=== PATIENT | male | born 1975 | race Two or more races ===

== ENCOUNTER 2024-01-18 21:33 | Emergency (ER) | payer MEDICAID, OTHER ==
[~2024-01-18] VITALS: Ht 167.6 cm; Wt 83.2 kg
[2024-01-18 22:48] LABS: Urine Bacteria FEW /hpf (None Seen); Urine Blood Negative /uL (Negative); Urine Clarity Turbid (Clear); Urine Color Yellow (Yellow); Urine Hyaline Cast FEW /lpf (0 - 2); Urine Mucus FEW (None Seen); Urine Protein, UAD 1+ (Negative); Urine Specific Gravity 1.028 (1.001-1.035); Urine Urobilinogen Normal (Negative); Urine WBC 33 /hpf (0 - 3)
[2024-01-18] MEDS: levoFLOXacin 250 MG TAB PO ONE (23:06)
[2024-01-18] MEDS: KETOROLAC TROMETH 30 MG/ML 1ML VIAL IM ONE (23:06)
[2024-01-18 23:10] VITALS: BP 125/82; PULSE 76; RESP 19; TEMP 97.7; O2SAT 97
[2024-01-18] MEDS ORDERED: LEVO750T40 PO (23:31)
[2024-01-18] MEDS ORDERED: IBUP-1455 PO (23:31)
== END 2024-01-18 23:48 | disposition home or self-care (01) ==
LOC: ER 21:33
DX: N39.0 Urinary tract infection, site not specified (principal)
CPT/HCPCS: 81001; 96372; 99283; J1885